=== PATIENT | male | born 1970 | race African-American/Black ===

== ENCOUNTER → 2017-01-18 | Emergency (ER) | payer BC ==
[~2017-01-18] MED LIST: KETOROLAC TROMETHAMINE 30 MG/1 ML VIAL IVPUSH ONE; KETOROLAC TROMETHAMINE 30 MG/1 ML VIAL ONE
[2017-01-18 01:17] VITALS: BP 153/90; PULSE 84; TEMP 98.3; BMI 36.6
[2017-01-18 02:33] LABS: BASOPHIL 0.9 % (0-2.0); EOSINOPHIL 8.2 % (0-4.5); MCH 27.1 pg (25.7-33.7); MCHC 33.3 g/dl (32.0-35.9); MEAN CELL VOLUME 81.5 fl (80-96); MEAN PLT VOLUME 8.3 fl (7.5-11.1); NEUTROPHILS 53.8 % (42.8-82.8); PLATELET COUNT 248 K/MM3 (134-434); RDW 15.7 % (11.9-15.9); WHITE BLOOD COUNT 5.6 K/mm3 (4.0-10.0)
[2017-01-18 02:34] LABS: URINE APPEARANCE CLEAR; URINE BILIRUBIN NEGATIVE (NEGATIVE); URINE BLOOD NEGATIVE (NEGATIVE); URINE COLOR LTYELLOW; URINE GLUCOSE (UA) NEGATIVE (NEGATIVE); URINE KETONE NEGATIVE (NEGATIVE); URINE LEUK ESTERASE NEGATIVE (NEGATIVE); URINE NITRITE NEGATIVE (NEGATIVE); URINE UROBILINOGEN NEGATIVE mg/dL (0.2-1.0)
[2017-01-18 02:52] LABS: URINE PROTEIN 1+ (NEGATIVE)
--- NOTE | 2017-01-18 03:06 | PDOC ---
History of Present Illness - General Chief Complaint: Pain Stated Complaint: PAIN Time Seen by Provider: 01/18/17 02:10 - History of Present Illness Initial Comments: 01/18/17 03:04 CHIEF COMPLAINT: back pain HISTORY OF PRESENT ILLNESS: 46 yo M with hx of HTN presents to [facility] with R sided back pain x 4 days. Patient states he woke up with the pain 4 days ago and the pain has not subsided. He states that the pain is worse with movement. 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 Patient denies numbness or tingling of the legs, loss of bowel or bladder function. No recent travel or sick contacts. PAST MEDICAL HISTORY: Denies past medical history FAMILY HISTORY: Denies SOCIAL HISTORY: Denies tobacco, alcohol, illicit drug use. SURGICAL HISTORY: Denies ALLERGIES: No known drug allergies REVIEW OF SYSTEMS General/Constitutional: Denies fever or chills. Denies weakness, weight change. HEENT: Denies change in vision. Denies ear pain or discharge. Denies sore throat. Cardiovascular: Denies chest pain or shortness of breath. Respiratory: Denies cough, wheezing, or hemoptysis. Gastrointestinal: Denies nausea, vomiting, diarrhea or constipation. Denies rectal bleeding. Genitourinary: Denies dysuria, frequency, or change in urination. Musculoskeletal: R lower back pain. PHYSICAL EXAM General Appearance: Well-appearing, appropriately dressed. No apparent distress. HEENT: EOMI, PERRLA. Respiratory/Chest: Lungs CTAB. Cardiovascular: RRR. S1, S2. Gastrointestinal/Abdominal: Normal bowel sounds. Abdomen soft, non-distended. No tenderness or rebound tenderness. No organomegaly, pulsatile mass, guarding , hernia, hepatomegaly, splenomegaly. Musculoskeletal/Extremities: R lower back pain. FROM of all extremities, normal capillary refill. No tenderness to extremities, pedal edema, swelling, erythema or deformity. Integumentary: Appropriate color, dry, warm. 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 Fully oriented, alert. Appropriate mood/affect. Motor strength 5/5. No appreciable EOM palsy, facial droop or sensory deficit. 01/18/17 03:07 Past History - Past Medical History Allergies/Adverse Reactions: Allergies Allergy/AdvReac Type Severity Reaction Status Date / Time No Known Drug Allergies Allergy Unknown Verified 01/18/17 01:13 seafood Allergy Uncoded 01/18/17 01:13 Home Medications: Ambulatory Orders Amlodipine Besylate/Benazepril [Lotrel 10-40 mg Capsule] 1 each PO DAILY #30 capsule 06/19/13 Aspirin [ASA -] 81 mg PO DAILY #30 tab.chew 06/19/13 Hydrochlorothiazide [Hctz -] 25 mg PO DAILY 10/29/15 Naproxen Sodium [Anaprox] 275 mg PO TID #30 tablet 10/29/15 Sulfamethoxazole/Trimethoprim [Bactrim Ds Tablet] 1 each PO BID #20 tablet 10/28 Clindamycin [Cleocin -] 300 mg PO TID #21 capsule 06/01/16 Oxycodone HCl/Acetaminophen [Percocet 5-325 mg Tablet] 1 - 2 tab PO Q6H PRN #12 tab MDD 4 06/01/16 Diazepam [Valium] 5 mg PO HS #5 tablet MDD 1 01/18/17 Naproxen [Naprosyn -] 500 mg PO BID #14 tablet 01/18/17 HTN: Yes - Psycho/Social/Smoking Cessation Hx Anxiety: No Suicidal Ideation: No Smoking History: Current every day smoker Have you smoked in the past 12 months: Yes Number of Cigarettes Smoked Daily: 20 Information on smoking cessation initiated: No 'Breaking Loose' booklet given: 06/18/13 Hx Alcohol Use: No Drug/Substance Use Hx: No Substance Use Type: None *Physical Exam - Vital Signs Last Vital Signs Temp Pulse Resp BP Pulse Ox 98.3 F 84 20 153/90 96 01/18/17 01:14 01/18/17 01:14 01/18/17 01:14 01/18/17 01:14 01/18/17 01:14 ED Treatment Course - LABORATORY CBC & Chemistry Diagram: 01/18/17 02:20 01/18/17 02:20 - ADDITIONAL ORDERS Additional order review: Laboratory Results 01/18/17 02:20 Urine Color Ltyellow Urine Appearance Clear Urine pH 6.0 Urine Protein 1+ H Urine Glucose (UA) Negative Urine Ketones Negative Urine Blood Negative Urine Nitrite Negative Urine Bilirubin Negative Urine Urobilinogen Negative Ur Leukocyte Esterase Negative 01/18/17 02:20 RBC 5.12 MCV 81.5 MCHC 33.3 RDW 15.7 MPV 8.3 Neutrophils % 53.8 Lymphocytes % 29.9 Monocytes % 7.2 Eosinophils % 8.2 H Basophils % 0.9 Medical Decision Making - Medical Decision Making 01/18/17 04:59 46 yo M with hx of HTN presents to [facility] with R sided back pain x 4 days. -CBC, CMP -30 mg IV Toradol Likely musculoskeletal pain secondary to strenuous physical activity. Patient reports feeling "much better" and is ready to go home. Valium, naproxen rx sent to pharm. Advised patient to take medication as prescribed and follow up with orthopedics if symptoms persist. Advised patient of signs and symptoms for return to ED. Patient verbalized understanding and agrees to plan. *DC/Admit/Observation/Transfer Diagnosis at time of Disposition: Back pain Qualifiers: Back pain location: low back pain Chronicity: acute Back pain laterality: right Sciatica presence: without sciatica Qualified Code(s): M54.5 - Low back pain - Discharge Dispostion Disposition: HOME Condition at time of disposition: Stable - Prescriptions Prescriptions: Naproxen [Naprosyn -] 500 mg PO BID #14 tablet Diazepam [Valium] 5 mg PO HS #5 tablet MDD 1 - Referrals Referrals: Dari Salinas [Primary Care Provider] - Dustin Bhatt MD [Staff Physician] - - Patient Instructions Printed Discharge Instructions: DI for Low Back Pain Additional Instructions: Please take medications as prescribed. Follow up with orthopedics if symptoms persist past 3-4 days. If you experience any shortness of breath, chest pain, headache, fever, chills, loss of sensation/numbness/tingling to your legs, loss of bowel or bladder function, or any new or worsening symptoms, please return to the ER.
[2017-01-18 03:11] LABS: ALBUMIN 3.4 g/dl (3.4-5.0); ALK PHOS 56 U/L (45-117); ANION GAP 7 (8-16); BILIRUBIN,TOTAL 0.4 mg/dL (0.2-1.0); CALCIUM 8.8 mg/dL (8.5-10.1); CO2 34 mmol/L (21-32); CREATININE 1.4 mg/dL (0.7-1.3); GLUCOSE,RANDOM 151 mg/dL (74-106); SGPT/ALT 37 U/L (12-78)
[2017-01-18 03:13] LABS: SGOT/AST 33 U/L (15-37)
[2017-01-18 03:18] LABS: URINE MUCUS RARE; URINE RBC <1 /hpf (0-3)
== END | disposition home or self-care (01) ==
LOC: JER 00:59
PROC: 3E0333Z Introduction of Anti-inflammatory into Peripheral Vein, Percutaneous Approach (ICD-10-PCS; principal; 2017-01-18)
DX: M54.5 Low back pain (principal); I10 Essential (primary) hypertension; Z79.82 Long term (current) use of aspirin; F17.210 Nicotine dependence, cigarettes, uncomplicated
CPT/HCPCS: 36415; 80053; 81003; 81015; 85025; 87086; 99283-25

== ENCOUNTER 2018-02-06 13:01 | Inpatient (IN) | payer OTHER ==
--- NOTE | 2018-02-06 13:26 | PDOC ---
History of Present Illness - General Chief Complaint: SIRS, Suspected/Possible Stated Complaint: LOWER BACK PAIN Time Seen by Provider: 02/06/18 13:25 Past History - Past Medical History Allergies/Adverse Reactions: Allergies Allergy/AdvReac Type Severity Reaction Status Date / Time No Known Drug Allergies Allergy Unknown Verified 02/06/18 13:06 seafood Allergy Uncoded 02/06/18 13:06 Home Medications: Ambulatory Orders Amlodipine Besylate/Benazepril [Lotrel 10-40 mg Capsule] 1 each PO DAILY #30 capsule 06/19/13 Aspirin [ASA -] 81 mg PO DAILY #30 tab.chew 06/19/13 Hydrochlorothiazide [Hctz -] 25 mg PO DAILY 10/29/15 Naproxen Sodium [Anaprox] 275 mg PO TID #30 tablet 10/29/15 Sulfamethoxazole/Trimethoprim [Bactrim Ds Tablet] 1 each PO BID #20 tablet 10/28 Clindamycin [Cleocin -] 300 mg PO TID #21 capsule 06/01/16 Oxycodone HCl/Acetaminophen [Percocet 5-325 mg Tablet] 1 - 2 tab PO Q6H PRN #12 tab MDD 4 06/01/16 Diazepam [Valium] 5 mg PO HS #5 tablet MDD 1 01/18/17 Naproxen [Naprosyn -] 500 mg PO BID #14 tablet 01/18/17 Acetaminophen [Tylenol -] 1,000 mg PO Q6H PRN #30 tablet 02/05/18 levoFLOXacin [Levaquin -] 500 mg PO DAILY #7 tablet 02/05/18 COPD: No HTN: Yes - Immunization History Immunization Up to Date: Yes - Suicide/Smoking/Psychosocial Hx Smoking History: Current some day smoker Have you smoked in the past 12 months: Yes Number of Cigarettes Smoked Daily: 20 Information on smoking cessation initiated: No 'Breaking Loose' booklet given: 06/18/13 Hx Alcohol Use: No Drug/Substance Use Hx: No Substance Use Type: None *Physical Exam - Vital Signs Last Vital Signs Temp Pulse Resp BP Pulse Ox 101.9 F H 91 H 20 163/86 97 02/06/18 13:06 02/06/18 13:06 02/06/18 13:06 02/06/18 13:06 02/06/18 13:06
[2018-02-06] MEDS ORDERED: SODIUM CHLORIDE 0.9% 1000 ML INFUS.BAG IV ONE ×2 (13:34→16:32)
[2018-02-06] MEDS ORDERED: ACETAMINOPHEN 1000 MG/100 ML VIAL (NON FORMULARY) IVPB ONE (13:34)
[2018-02-06] MEDS ORDERED: DEXAMETHASONE SOD PHOSPHATE 10 MG/1 ML VIAL IVPUSH ONE (13:35)
--- NOTE | 2018-02-06 13:50 | PDOC ---
History of Present Illness - General Chief Complaint: SIRS, Suspected/Possible Stated Complaint: LOWER BACK PAIN Time Seen by Provider: 02/06/18 13:25 History Source: Patient Exam Limitations: No Limitations - History of Present Illness Initial Comments: 02/06/18 13:50 The patient is a 47M with no PMH who presents to the ER with 1.5 days of sore throat, fevers, and myalgias. The patient states that he had an abrupt onset of sore throat, fevers, myalgias, and mild cough for 1.5 days. He denies any sick contacts. He admits to mild CP but no SOB, nausea, or vomiting. Past History - Past Medical History Allergies/Adverse Reactions: Allergies Allergy/AdvReac Type Severity Reaction Status Date / Time No Known Drug Allergies Allergy Unknown Verified 02/06/18 13:06 seafood Allergy Uncoded 02/06/18 13:06 Home Medications: Ambulatory Orders Hydrochlorothiazide [Hctz -] 50 mg PO DAILY 02/06/18 Losartan Potassium 100 mg PO DAILY 02/06/18 COPD: No HTN: Yes - Immunization History Immunization Up to Date: Yes - Suicide/Smoking/Psychosocial Hx Smoking History: Current every day smoker Have you smoked in the past 12 months: Yes Number of Cigarettes Smoked Daily: 20 Information on smoking cessation initiated: No 'Breaking Loose' booklet given: 06/18/13 Hx Alcohol Use: No Drug/Substance Use Hx: No Substance Use Type: None Review of Systems - Review of Systems Able to Perform ROS?: Yes Comments:: 02/06/18 13:58 GENERAL/CONSTITUTIONAL: Positive for fever. No chills. No weakness. HEAD, EYES, EARS, NOSE AND THROAT: Positive for sore throat. No change in vision. No ear pain or discharge. CARDIOVASCULAR: Positive for resolved CP. No palpitations or lightheadedness. RESPIRATORY: No cough, wheezing, shortness of breath, or hemoptysis. GASTROINTESTINAL: No nausea, vomiting, diarrhea, constipation, or abdominal pain. GENITOURINARY: No dysuria, frequency, hematuria, or change in urination. MUSCULOSKELETAL: Positive for myalgias. No neck or back pain. SKIN: No rash or lesions. NEUROLOGIC: No headache, numbness, tingling, weakness, loss of consciousness, or change in strength/sensation. ENDOCRINE: No increased thirst. No abnormal weight change. HEMATOLOGIC/LYMPHATIC: No anemia, easy bleeding, or history of blood clots. ALLERGIC/IMMUNOLOGIC: No hives or skin allergy. Is the patient limited Kenyan proficient: No *Physical Exam - Vital Signs Last Vital Signs Temp Pulse Resp BP Pulse Ox 101.9 F H 91 H 20 163/86 97 02/06/18 13:06 02/06/18 13:06 02/06/18 13:06 02/06/18 13:06 02/06/18 13:06 - Physical Exam Comments: 02/06/18 13:59 GENERAL: Well developed, well nourished. Awake and alert. In mild distress. Warm to touch. HEENT: Normocephalic, atraumatic. Hearing grossly normal. Moist mucous membranes. PERRLA, EOMI. No conjunctival pallor. Sclera are non-icteric. Oropharynx is erythematous w/ enlarged tonsils. NECK: Supple. Full ROM. No JVD. Mild lymphadenopathy. CARDIOVASCULAR: Regular rate and rhythm. No murmurs, rubs, or gallops. PULMONARY: No evidence of respiratory distress. L lower lobe rhonchi. ABDOMINAL: Soft. Non-tender. Non-distended. No rebound or guarding. GENITOURINARY: No CVA tenderness bilaterally. MUSCULOSKELETAL: Normal range of motion at all joints. No bony deformities or tenderness. EXTREMITIES: No cyanosis. No clubbing. No edema. No calf tenderness or swelling. SKIN: Warm and dry. Normal capillary refill. No rashes. No jaundice. NEUROLOGICAL: Alert, awake, appropriate. Cranial nerves 2-12 intact. Normal speech. Gait is normal without ataxia. PSYCHIATRIC: Cooperative. Good eye contact. Appropriate mood and affect. ED Treatment Course - LABORATORY CBC & Chemistry Diagram: 02/06/18 14:37 02/06/18 14:37 - RADIOLOGY Radiology Studies Ordered: Category Date Time Status CHEST PA & LAT [RAD] Stat Radiology 02/06/18 13:34 Ordered Medical Decision Making - Medical Decision Making 02/06/18 14:01 The patient is a 47M with no PMH who presents to the ER with complaints of fever , myalgias, and sore throat. Exam reveals rhonchi in L lower lobe. Will order labs and CXR with EKG. Concern for CAP. Pending labs and imaging. 02/06/18 17:15 CXR shows possible retrocardiac infiltrate. CMP indicates electrolyte abnormalities, especially trop of 0.1 and K of 2.6. Replenishing K and giving asa with cardiology consult. Attending d/w cards. Paging hospitalist for admission. *DC/Admit/Observation/Transfer Diagnosis at time of Disposition: Sepsis, Pneumonia, Elevated troponin, Hypokalemia - Discharge Dispostion Condition at time of disposition: Guarded - Referrals - Patient Instructions - Post Discharge Activity
[2018-02-06] MEDS ORDERED: DEXAMETHASONE SOD PHOSPHATE 10 MG/1 ML VIAL ONE (14:28)
--- NOTE | 2018-02-06 14:28 | PDOC ---
Attending Attestation - HPI HPI: 02/06/18 16:16 The patient is a 47 year old male with a significant PMH of hypertension who presents to the emergency department with a sore throat and fever for about 2 days. The patient also reports associated myalgia, chest pain and mild cough. He denies any travel or known sick contact. The patient denies any shortness of breath , nausea, or vomiting. 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 He denies any other symptoms or complaints. - Physicial Exam PE: 02/06/18 16:16 GENERAL: (+)hot to touch. Awake, alert, and fully oriented, in no acute distress HEAD: No signs of trauma EYES: PERRLA, EOMI, sclera anicteric, conjunctiva clear ENT: Auricles normal inspection, hearing grossly normal, nares patent, oropharynx clear without exudates. Moist mucosa NECK: Normal ROM, supple, no lymphadenopathy, JVD, or masses LUNGS: Breath sounds equal, clear to auscultation bilaterally. No wheezes, and no crackles HEART:(+)tachycardic. Regular rate. normal S1 and S2, no murmurs, rubs or gallops ABDOMEN: Soft, nontender, normoactive bowel sounds. No guarding, no rebound. No masses EXTREMITIES: )trace edema in legs. Normal range of motion. No clubbing or cyanosis. No cords, erythema, or tenderness NEUROLOGICAL: Cranial nerves II through XII grossly intact. Normal speech, normal gait SKIN: Warm, Dry, normal turgor, no rashes or lesions noted. Documentation prepared by Cristy English, acting as medical technician assistant for Ambika Valero MD. <Cristy English - Last Filed: 02/06/18 16:16> - Resident Resident Name: Jim Enamorado - ED Attending Attestation I have performed the following: I have examined & evaluated the patient, The case was reviewed & discussed with the resident, I agree w/resident's findings & plan, Exceptions are as noted - Critical Care Time Total Critical Care Time: 35 Critical Care Statement: The care of this patient involved high complexity decision making to prevent further life threatening deterioration of the patient 's condition and/or to evaluate & treat vital organ system(s) failure or risk of failure. - Medical Decision Making 02/06/18 14:26 I, Dr. Ambika Valero, DO, attest that this document has been prepared under my direction and personally reviewed by me in its entirety. I further attest, that it accurately reflects all work, treatment, procedures and medical decision -making performed by me. 02/06/18 14:26 a/p: 47yo male with fever, chills, sore throat, cough, sob x 2 days -no recent travel or sick contacts -no recent abx -seen yesterday and started on levaquin for pharyngitis -feeling worse today - took levaquin this AM -rhonchi on lung exam -will send labs, ekg, cxr -will hydrate, tylenol for fever and reassess 02/06/18 16:38 pt with low potassium pna on cxr elevated trop ekg changes with lateral subendocardial ischemia case discussed with Dr. Ho covering cards will see patient in consult today agrees with asa therapy 02/06/18 17:[address] Mary who accept pt to service <Ambika Valero - Last Filed: 02/06/18 17:33> Discharge Disposition <Cristy English - Last Filed: 02/06/18 16:16> - Discharge Dispostion Last Admission D/C Date: 06/19/13 Decision to Admit order: Yes <Ambika Vaelro - Last Filed: 02/06/18 17:33> - Diagnosis Sepsis, Pneumonia, Elevated troponin, Hypokalemia - Discharge Dispostion Condition at time of disposition: Guarded Heart Score/ECG Review - ECG Intrepretation Comment:: 02/06/18 14:43 sinus at 83, nl axis, lvh, st depression with t wave inversions lateral leads, abnl ekg, q waves septally that are age indeterminate <Ambika Valero - Last Filed: 02/06/18 17:33>
[2018-02-06] MEDS ORDERED: ACETAMINOPHEN INJECTION 100 ML IVPB ONE (14:29)
[2018-02-06 14:46] LABS: BASO % 0.3 % (0-2.0); EOS % 0.1 % (0-4.5); HEMATOCRIT 40.4 % (35.4-49); HEMOGLOBIN 13.7 GM/dL (11.7-16.9); LYMPH % 12.8 % (8-40); MCH 27.4 pg (25.7-33.7); MCHC 33.8 g/dl (32.0-35.9); MEAN PLT VOLUME 8.6 fl (7.5-11.1); MONO % 8.8 % (3.8-10.2); PLATELET COUNT 166 K/MM3 (134-434); RBC 4.98 M/mm3 (4.00-5.60); RDW 15.4 % (11.9-15.9); WHITE BLOOD COUNT 7.3 K/mm3 (4.0-10.0)
[2018-02-06 15:09] LABS: ALBUMIN 3.1 g/dl (3.4-5.0); ANION GAP 9 MMOL/L (8-16); BLOOD UREA NITROGEN 18 mg/dL (7-18); CALCIUM 8.2 mg/dL (8.5-10.1); CHLORIDE 91 mmol/L (98-107); CO2 36 mmol/L (21-32); CREATININE 1.4 mg/dL (0.7-1.3); GLUCOSE,RANDOM 107 mg/dL (74-106); SGOT/AST 42 U/L (15-37); SGPT/ALT 46 U/L (12-78); SODIUM 136 mmol/L (136-145)
[2018-02-06 15:13] LABS: ALK PHOS 56 U/L (45-117); BILIRUBIN,TOTAL 1.2 mg/dL (0.2-1.0); N-TERMINAL BNP 303.27 pg/ml (5-125); TOT PROT 6.6 g/dl (6.4-8.2)
[2018-02-06 15:15] LABS: POTASSIUM 2.6 mmol/L (3.5-5.1)
[2018-02-06] MEDS ORDERED: POTASSIUM CHLORIDE TABS 20 MEQ TABLET.ER (FP) PO ONE ×2 (15:15→17:35)
[2018-02-06] MEDS ORDERED: ASPIRIN 81 MG CHEWABLE TABLETS PO ONE (16:32)
--- NOTE | 2018-02-06 17:07 | CON.CARD ---
Consult Consult Specialty:: Cardiology Referred by:: Marylu Reason for Consultation:: chest pain, abnormal EKG, elevated trop - History of Present Illness Chief Complaint: fever History of Present Illness: 47M h/o HTN p/w sore throat, fever, chest pain, myalgia, cough. Noted to have PNA on CXR. Noted to have K 2.6, trop 0.12, EKG shows ST depressions, febrile in ED. Currently has chest pain with coughing. Has a history of uncontrolled BP, on HCTZ and ARB at home but BP checks at home 160s-190s systolic, 90s-110s diastolic from what he remembers. Has occasional edema. No exertional symptoms prior to recent illness. Has not been to a doctor in several months. - History Source History Provided By: Patient Limitations to Obtaining History: No Limitations - Past Medical History Cardio/Vascular: Yes: HTN - Alcohol/Substance Use Hx Alcohol Use: No - Smoking History Smoking history: Current every day smoker Have you smoked in the past 12 months: Yes Aproximately how many cigarettes per day: 20 Home Medications - Allergies Allergies/Adverse Reactions: Allergies Allergy/AdvReac Type Severity Reaction Status Date / Time No Known Drug Allergies Allergy Unknown Verified 02/06/18 13:06 seafood Allergy Uncoded 02/06/18 13:06 - Home Medications Home Medications: Ambulatory Orders Hydrochlorothiazide [Hctz -] 50 mg PO DAILY 02/06/18 Losartan Potassium 100 mg PO DAILY 02/06/18 Review of Systems - Review of Systems Constitutional: reports: Chills, Fever Eyes: reports: No Symptoms HENT: reports: No Symptoms Neck: reports: No Symptoms Cardiovascular: reports: Chest Pain Respiratory: reports: Cough Gastrointestinal: reports: No Symptoms Musculoskeletal: reports: No Symptoms Integumentary: reports: No Symptoms Neurological: reports: No Symptoms Endocrine: reports: No Symptoms Hematology/Lymphatic: reports: No Symptoms Psychiatric: reports: No Symptoms Vital Signs: Vital Signs Temperature 101.9 F H 02/06/18 13:06 Pulse Rate 91 H 02/06/18 13:06 Respiratory Rate 20 02/06/18 13:06 Blood Pressure 163/86 02/06/18 13:06 O2 Sat by Pulse Oximetry (%) 97 02/06/18 13:06 Constitutional: Yes: No Distress, Calm Eyes: Yes: Conjunctiva Clear, EOM Intact HENT: Yes: Atraumatic, Normocephalic Neck: Yes: Supple Respiratory: Yes: Regular, CTA Bilaterally Gastrointestinal: Yes: Normal Bowel Sounds, Soft Cardiovascular: Yes: Regular Rate and Rhythm JVD: No Heart Sounds: Yes: S1, S2 Edema: No Peripheral Pulses: 2+ Left Doralis Pedis, 2+ Right Dorsalis Pedis Integumentary: Yes: WNL Neurological: Yes: Alert, Oriented Psychiatric: Yes: Alert, Oriented - Other Data Labs, Other Data: CBC, BMP 02/06/18 14:37 02/06/18 14:37 Troponin, BNP 02/06/18 02/06/18 14:37 14:37 Troponin I 0.12 H D B-Natriuretic Peptide 303.27 H Troponin, BNP 02/06/18 02/06/18 14:37 14:37 Troponin I 0.12 H D B-Natriuretic Peptide 303.27 H Assessment/Plan EKG: sinus rhythm, LAE, LVH with strain pattern. EKG from 2008 shows LVH with strain as well CXR retrocardiac infiltrate 47M h/o HTN p/w cough, pharyngitis, PNA with abnormal EKG, elevated trop Elevated trop - likely demand in setting of infection, uncontrolled HTN - initial trop 0.12, trend trop, agree with aspirin, monitor on tele - EKG shows ST depressions in setting of strain, patient has chest pain but less likely ACS related, worse with cough, deep breaths, defer treatment for ACS at this point Abnl EKG - likely in setting of uncontrolled HTN, shows LVH with strain - echo ordered HTN - cont home meds, may need additional agent if remains poorly controlled. PNA - abx per primary team
[2018-02-06] MEDS ORDERED: ASPIRIN 81 MG CHEWABLE TABLETS ONE (17:35)
--- NOTE | 2018-02-06 17:59 | HP ---
CHIEF COMPLAINT: Sore throat, weakness, fever PCP: Dr. Rosa Arauz HISTORY OF PRESENT ILLNESS: Patient is a 47 year old male with a PMHx of HTN, pre-diabetes who presents today complaining of Sore throat, subjective fevers, chills, malaise, fatigue, dry cough for the last two days. Patient initially presented to the ED yesterday for these symptoms and was given Levaquin and discharged home. Patient however, reports his symptoms were worsening and he started having worsening fevers with worsening malaise and cough. Patient reports no productive sputum with cough. Denies sick contacts or anyone sick in the house. Denies any recent travel. Patient also reports having one episode of sharp, non radiating, intermittent chest pain that lasted only 5 minutes associated with palpitations. He reports never having these symptoms in the past and denies any shortness of breath. Otherwise, patient denies blurry vision, loss of consciousness, abdominal pain, dizziness, vomiting, diarrhea, constipation, rhinorrhea, nasal congestion, throat swelling, difficulty swallowing. Patient reports having an exercise stress test done one year ago and was negative. ER course was notable for: (1) Chest X-ray showing PNA, EKG abnormalities (2)Troponins elevated (3)Hypokalemia Recent Travel: Denies PAST MEDICAL HISTORY: HTN, Pre-diabetes PAST SURGICAL HISTORY: Denies Social History: Smokin PPD since the age of 13 Alcohol: Occasional Drugs: Denies Family History: Mother and father - HTN Allergies: No Known Drug Allergies Allergy (Unknown, Verified 02/06/18 13:06) seafood Allergy (Uncoded 02/06/18 13:06) HOME MEDICATIONS: Home Medications Medication Instructions Recorded Hydrochlorothiazide [Hctz -] 50 mg PO DAILY 02/06/18 Losartan Potassium 100 mg PO DAILY 02/06/18 REVIEW OF SYSTEMS CONSTITUTIONAL: fever, chills, diaphoresis, generalized weakness, malaise Absent: loss of appetite, weight change HEENT: throat pain Absent: rhinorrhea, nasal congestion, throat swelling, difficulty swallowing, mouth swelling, ear pain, eye pain, visual changes CARDIOVASCULAR: chest pain, palpitations Absent: syncope, irregular heart rate, lightheadedness, peripheral edema RESPIRATORY: cough Absent: shortness of breath, dyspnea with exertion, orthopnea, wheezing, stridor , hemoptysis GASTROINTESTINAL: Absent: abdominal pain, abdominal distension, nausea, vomiting, diarrhea, constipation, melena, hematochezia GENITOURINARY: Absent: dysuria, frequency, urgency, hesitancy, hematuria, flank pain, genital pain MUSCULOSKELETAL: Absent: myalgia, arthralgia, joint swelling, back pain, neck pain SKIN: Absent: rash, itching, pallor HEMATOLOGIC/IMMUNOLOGIC: Absent: easy bleeding, easy bruising, lymphadenopathy, frequent infections ENDOCRINE: Absent: unexplained weight gain, unexplained weight loss, heat intolerance, cold intolerance NEUROLOGIC: Absent: headache, focal weakness or paresthesias, dizziness, unsteady gait, seizure, mental status changes, bladder or bowel incontinence PSYCHIATRIC: Absent: anxiety, depression, suicidal or homicidal ideation, hallucinations. PHYSICAL EXAMINATION Vital Signs - 24 hr 02/06/18 13:06 Temperature 101.9 F H Pulse Rate 91 H Respiratory 20 Rate Blood Pressure 163/86 O2 Sat by Pulse 97 Oximetry (%) GENERAL: Awake, alert, and fully oriented, in no acute distress, diaphoretic HEAD: Normal with no signs of trauma. EYES: Pupils equal, round and reactive to light, extraocular movements intact, sclera anicteric, conjunctiva clear. No lid lag. EARS, NOSE, THROAT: (+) Pharyngeal erythema with no exudates, Moist mucous membranes. NECK: Normal range of motion, supple without lymphadenopathy, JVD, or masses. LUNGS: Bilateral rales. No wheezes. No accessory muscle use. HEART: Tachycardia with regular rhythm, normal S1 and S2 without murmur, rub or gallop. ABDOMEN: Soft, Obese, nontender, not distended, normoactive bowel sounds, no guarding, no rebound, no masses. MUSCULOSKELETAL: Normal range of motion at all joints. No bony deformities or tenderness. No CVA tenderness. LOWER EXTREMITIES: Trace pitting edema NEUROLOGICAL: Cranial nerves II-XII intact. Normal speech. PSYCHIATRIC: Cooperative. Good eye contact. Appropriate mood and affect. SKIN: Warm, dry, normal turgor, no rashes or lesions noted, normal capillary refill. Laboratory Results - last 24 hr 02/06/18 02/06/18 02/06/18 14:37 14:37 14:37 WBC 7.3 RBC 4.98 Hgb 13.7 Hct 40.4 MCV 81.0 MCH 27.4 MCHC 33.8 RDW 15.4 Plt Count 166 D MPV 8.6 Absolute Neuts (auto) 5.7 Neutrophils % 78.0 D Lymphocytes % 12.8 D Monocytes % 8.8 Eosinophils % 0.1 D Basophils % 0.3 Nucleated RBC % 0 Sodium 136 Potassium 2.6 L* D Chloride 91 L Carbon Dioxide 36 H Anion Gap 9 BUN 18 Creatinine 1.4 H Creat Clearance w eGFR 54.32 Random Glucose 107 H D Calcium 8.2 L Total Bilirubin 1.2 H AST 42 H D ALT 46 D Alkaline Phosphatase 56 Creatine Kinase 762 H Creatine Kinase Index 0.2 CK-MB (CK-2) 2.15 Troponin I 0.12 H D B-Natriuretic Peptide 303.27 H Total Protein 6.6 Albumin 3.1 L ASSESSMENT/PLAN: Patient is a 47 year old male who presented for a dry cough, sore throat, fevers , malaise and was found to have pneumonia and elevated troponins, Patient admitted for further monitoring and management. Sepsis Secondary Pneumonia w/ Possible Superimposed Viral/Bacterial Pharyngitis -Febrile with tachycardia with CXR conforming PNA -Continue IV Levaquin 750mg daily -Continue IV fluids -02 PRN to maintain >90% -Blood cultures pending Elevated Troponins -Likely demand ischemia -First Troponin 0.12, will continue to trend Q6H with repeat at 20:30 -EKG abnormalities showing -Full dose ASA given and cardiology consult placed.. Will continue ASA 81mg daily -ECHO ordered -Tele monitoring -Lipid panel and A1C ordered Hypokalemia -Possibly medication induced -KCl 60mg given in ED. KCL 10meq x3 ordered with PO -Check Mg and repeat potassium JASON on Possible CKD -Likely secondary to Sepsis or medication induced -Continue IVF -Avoid Nephrotoxic medications HTN -Uncontrolled -Will hold home medications Losartan and HCTZ as it might worsen JASON. Unable to take Amlodipine due to B/L LE edema. -Will consider Hydralazine Nicotine Dependence -Nicotine patch F/E/N -IV NS 2L -Hypokalemia. Replete and repeat Prophylaxis -heparin 5000 units SQ TID -No GI required Disposition -Will require tele monitoring and ECHO pending Visit type - Emergency Visit Emergency Visit: Yes ED Registration Date: 02/06/18 Care time: The patient presented to the Emergency Department on the above date and was hospitalized for further evaluation of their emergent condition. - New Patient This patient is new to me today: Yes Date on this admission: 02/06/18 - Critical Care Critical Care patient: No Hospitalist Screening - Colonoscopy Questionnaire Colonoscopy Questionnaire: Colonoscopy Questionnaire - Patient: 50 - 75 years old and never had a screening colonoscopy: No History of colon or rectal polyps, or CA: No History of IBD, Crohn's disease or UC: No History of abdominal radiation therapy as a child: No - Relative: 1 with colon or rectal CA, or polyps at age 60 or younger: No Colon or rectal CA diagnosed at age 45 or younger: No Multiple relatives with colon or rectal CA: No - Outcome: Screening Result: Negative Screen
[2018-02-06] MEDS ORDERED: ACETAMINOPHEN 325 MG TABLET (FP) PO PRN (18:11)
--- NOTE | 2018-02-06 18:16 | PN ---
Teaching Attending Note Name of Resident: Marce Keys ATTENDING PHYSICIAN STATEMENT I saw and evaluated the patient. I reviewed the resident's note and discussed the case with the resident. I agree with the resident's findings and plan as documented. SUBJECTIVE:47yo M with PMH HTN presented to the ER for progressively worsening malaise and fatigue with non productive cough. assoc iwth subjective fevers and chills. was seen in the ER yesterday where rapid strep was done and negative and was sent out with levaquin x5 days. pt took it yesterday and today and was not feeling better and came to the ER. states he had some chest discomfort last night which has since disappeared. denies SOB, N/V/C/D/, no sick contacts no recent travel. no recent changes to medications had exercise stress test a year ago for routine and was negative per him. has not followed with retina subspecialist since then no family hx of CAD, no sudden cardiac +smoker OBJECTIVE: Last Vital Signs Temp Pulse Resp BP Pulse Ox 101.9 F H 91 H 20 163/86 97 02/06/18 13:06 02/06/18 13:06 02/06/18 13:06 02/06/18 13:06 02/06/18 13:06 General diaphoretic HEENT erythematous pharynx no exudate. mallenpati 4, no cervical LN CV S1 S2 tachy no murmur Lungs rales L base no wheezing Abdomen soft NT/ND obese Extremities trace pedal edema ASSESSMENT AND PLAN: 47yo M with PMH HTN presented with worsening malaise and constitutional symptoms presented to the ER and found to be septic due to PNA with elevated troponin 1. Sepsis due to PNA- Tm 101.9. tachycardia. will start levaquin IV, IVF. supplemental oxygen as needed to mantain spO2 >90%. f/u Cx 2. Elevated troponin- likely demand in setting of sepsis. given full dose asa. would continue baby asa at this time. Trop 0.12. place on tele for continuous cardiac monitoring. trend CE Q6H with EKG. echo. cardio consulted. 3. Hypokaelmia- medication effect. will give KCl 10meq x3 and po. check Mg. repeat 4. JASON- likely sepsis. unknown baseline. will treat with IVF. avoid nephrotoxic agents. 5. HTN- elevated. hold oral agents at this time. 6. Continous nicotine dependence- nicotine patch 7. DVT ppx- hep sq
[2018-02-06 18:28] LABS: URINE APPEARANCE CLEAR; URINE BILIRUBIN NEGATIVE (<2.0 mg/dL); URINE COLOR LTYELLOW; URINE GLUCOSE (UA) NEGATIVE (NEGATIVE); URINE KETONE NEGATIVE (NEGATIVE); URINE LEUK ESTERASE NEGATIVE (NEGATIVE); URINE NITRITE NEGATIVE (NEGATIVE)
[2018-02-06 18:29] LABS: URINE PROTEIN 1+ (NEGATIVE)
[2018-02-06] MEDS: KCL 10 MEQ IVPB 10 MEQ/100 ML INFUS.BAG IVPB SCH ×3 (20:00→22:00)
[2018-02-06] MEDS ORDERED: KCL 10 MEQ IVPB 30 MEQ/300 ML INFUS.BAG IVPB ONE (20:38)
[2018-02-06] MEDS: hydrALAZINE HCL 25 MG TABLET (FP) PO SCH (23:00)
[2018-02-06] MEDS ORDERED: hydrALAZINE HCL 25 MG TABLET (FP) ONE (23:27)
[2018-02-07 05:53] VITALS: TEMP 98.7; BMI 41.7
[2018-02-07] MEDS ORDERED: HEPARIN NA (PORCINE) 5,000 UNITS/ML 1ML VIAL SQ SCH (06:00)
[2018-02-07 08:48] LABS: CHLORIDE 97 mmol/L (98-107); POTASSIUM 3.5 mmol/L (3.5-5.1); SODIUM 138 mmol/L (136-145)
[2018-02-07 09:18] LABS: ANION GAP 9 MMOL/L (8-16); BLOOD UREA NITROGEN 21 mg/dL (7-18); CALCIUM 8.2 mg/dL (8.5-10.1); CHOLESTEROL 171 mg/dL (50-200); CO2 32 mmol/L (21-32); CREATININE 1.3 mg/dL (0.7-1.3); GLUCOSE,RANDOM 181 mg/dL (74-106); HDL CHOLESTEROL 37 mg/dL (40-60); MAGNESIUM 2.5 mg/dL (1.8-2.4); PHOSPHOROUS 2.1 mg/dL (2.5-4.9); TRIGLYCERIDES 98 mg/dL (35-160)
[2018-02-07] MEDS ORDERED: LOSARTAN POTASSIUM 50 MG TABLET (FP) PO SCH (10:00)
[2018-02-07] MEDS ORDERED: ASPIRIN 81 MG CHEWABLE TABLETS PO SCH (10:00)
[2018-02-07] MEDS ORDERED: HYDROCHLOROTHIAZIDE 25 MG TABLET (FP) PO SCH (10:00)
[2018-02-07] MEDS: hydrALAZINE HCL 25 MG TABLET (FP) PO SCH (10:01)
[2018-02-07 10:34] VITALS: BP 152/65; PULSE 74
--- NOTE | 2018-02-07 11:05 | PN ---
Progress Note (short form) - Note Progress Note: cc: fever s: no cp, palps, dizzy, lightheaded, sob o Current Medications Acetaminophen (Tylenol -) 650 mg PO Q6H PRN PRN Reason: PAIN LEVEL 1 - 3 Aspirin (Asa -) 81 mg PO DAILY [facility] Last Admin: 02/07/18 10:01 Dose: 81 mg Heparin Sodium (Porcine) (Heparin -) 5,000 unit SQ TID [facility] Last Admin: 02/07/18 06:43 Dose: 5,000 unit Hydralazine HCl (Apresoline -) 25 mg PO BID [facility] Last Admin: 02/07/18 10:01 Dose: 25 mg Levofloxacin (Levaquin 750 Mg Premixed Ivpb -) 750 mg in 150 mls @ 150 mls/hr IVPB DAILY [facility]; Protocol Last Admin: 02/07/18 10:01 Dose: Not Given Vital Signs Period Temp Pulse Resp BP Sys/Romano Pulse Ox Last 24 Hr 98.7 F-101.9 F 74-91 17-20 149-163/65-108 89-98 Constitutional: Yes: No Distress, Calm Eyes: Yes: Conjunctiva Clear, EOM Intact HENT: Yes: Atraumatic, Normocephalic Neck: Yes: Supple Respiratory: Yes: Regular, CTA Bilaterally Gastrointestinal: Yes: Normal Bowel Sounds, Soft Cardiovascular: Yes: Regular Rate and Rhythm JVD: No Heart Sounds: Yes: S1, S2 Edema: No Peripheral Pulses: 2+ Left Doralis Pedis, 2+ Right Dorsalis Pedis Integumentary: Yes: WNL Neurological: Yes: Alert, Oriented Psychiatric: Yes: Alert, Oriented - Other Data Assessment/Plan EKG: sinus rhythm, LAE, LVH with strain pattern. EKG from 2008 shows LVH with strain as well CXR retrocardiac infiltrate 47M h/o HTN p/w cough, pharyngitis, PNA with abnormal EKG, elevated trop Elevated trop - likely demand in setting of infection, uncontrolled HTN - trop 0.12, flat trend likely in setting of demand, unlikely ACS - EKG shows ST depressions in setting of LVH strain, patient has chest pain but less likely ACS related, worse with cough, deep breaths, defer treatment for ACS at this point - treat HTN as below Abnl EKG - likely in setting of uncontrolled HTN, shows LVH with strain - echo ordered HTN - holding home ARB and HCTZ per primary team, Cr has improved, BP improving on hydralazine however not first line agent - would consider restarting ARB and thiazide as JASON improves, continue hydralazine for now PNA - abx per primary team
--- NOTE | 2018-02-07 11:11 | DS ---
Physical Exam: SUBJECTIVE: did not evaluate the patient today. signed out AMA prior to my arrival. OBJECTIVE: Vital Signs Period Temp Pulse Resp BP Sys/Romano Pulse Ox Last 24 Hr 98.7 F-101.9 F 74-91 17-20 149-163/65-108 89-98 LABS Laboratory Results - last 24 hr 02/06/18 02/06/18 02/06/18 14:37 14:37 14:37 WBC 7.3 RBC 4.98 Hgb 13.7 Hct 40.4 MCV 81.0 MCH 27.4 MCHC 33.8 RDW 15.4 Plt Count 166 D MPV 8.6 Absolute Neuts (auto) 5.7 Neutrophils % 78.0 D Lymphocytes % 12.8 D Monocytes % 8.8 Eosinophils % 0.1 D Basophils % 0.3 Nucleated RBC % 0 Sodium 136 Potassium 2.6 L* D Chloride 91 L Carbon Dioxide 36 H Anion Gap 9 BUN 18 Creatinine 1.4 H Creat Clearance w eGFR 54.32 Random Glucose 107 H D Hemoglobin A1c % Calcium 8.2 L Phosphorus Magnesium Total Bilirubin 1.2 H AST 42 H D ALT 46 D Alkaline Phosphatase 56 Creatine Kinase 762 H Creatine Kinase Index 0.2 CK-MB (CK-2) 2.15 Troponin I 0.12 H D B-Natriuretic Peptide 303.27 H Total Protein 6.6 Albumin 3.1 L Triglycerides Cholesterol Total LDL Cholesterol HDL Cholesterol Urine Color Urine Appearance Urine pH Ur Specific [place] Urine Protein Urine Glucose (UA) Urine Ketones Urine Blood Urine Nitrite Urine Bilirubin Urine Urobilinogen Ur Leukocyte Esterase Urine WBC (Auto) Urine RBC (Auto) 02/06/18 02/06/18 02/07/18 17:40 21:03 06:00 WBC RBC Hgb Hct MCV MCH MCHC RDW Plt Count MPV Absolute Neuts (auto) Neutrophils % Lymphocytes % Monocytes % Eosinophils % Basophils % Nucleated RBC % Sodium 138 Potassium 3.5 D Chloride 97 L Carbon Dioxide 32 Anion Gap 9 BUN 21 H Creatinine 1.3 Creat Clearance w eGFR 59.17 Random Glucose 181 H D Hemoglobin A1c % Calcium 8.2 L Phosphorus 2.1 L Magnesium 2.5 H Total Bilirubin AST ALT Alkaline Phosphatase Creatine Kinase Creatine Kinase Index CK-MB (CK-2) Troponin I 0.12 H B-Natriuretic Peptide Total Protein Albumin Triglycerides 98 Cholesterol 171 Total LDL Cholesterol 113 H HDL Cholesterol 37 L D Urine Color Ltyellow Urine Appearance Clear Urine pH 6.0 Ur Specific [place] 1.011 Urine Protein 1+ H Urine Glucose (UA) Negative Urine Ketones Negative Urine Blood 1+ H Urine Nitrite Negative Urine Bilirubin Negative Urine Urobilinogen 2.0 Ur Leukocyte Esterase Negative Urine WBC (Auto) <1 Urine RBC (Auto) <1 02/07/18 06:00 WBC RBC Hgb Hct MCV MCH MCHC RDW Plt Count MPV Absolute Neuts (auto) Neutrophils % Lymphocytes % Monocytes % Eosinophils % Basophils % Nucleated RBC % Sodium Potassium Chloride Carbon Dioxide Anion Gap BUN Creatinine Creat Clearance w eGFR Random Glucose Hemoglobin A1c % 7.5 H Calcium Phosphorus Magnesium Total Bilirubin AST ALT Alkaline Phosphatase Creatine Kinase Creatine Kinase Index CK-MB (CK-2) Troponin I B-Natriuretic Peptide Total Protein Albumin Triglycerides Cholesterol Total LDL Cholesterol HDL Cholesterol Urine Color Urine Appearance Urine pH Ur Specific [place] Urine Protein Urine Glucose (UA) Urine Ketones Urine Blood Urine Nitrite Urine Bilirubin Urine Urobilinogen Ur Leukocyte Esterase Urine WBC (Auto) Urine RBC (Auto) HOSPITAL COURSE: Date of Admission:02/06/18 Date of Discharge: 02/07/18 Admitting diagnosis sepsis due to PNA, tropinemia, odette pre hospital course Patient is a 47 year old male with a PMHx of HTN, pre-diabetes who presents today complaining of Sore throat, subjective fevers, chills, malaise, fatigue, dry cough for the last two days. Patient initially presented to the ED yesterday for these symptoms and was given Levaquin and discharged home. Patient however, reports his symptoms were worsening and he started having worsening fevers with worsening malaise and cough. Patient reports no productive sputum with cough. Denies sick contacts or anyone sick in the house. Denies any recent travel. Patient also reports having one episode of sharp, non radiating, intermittent chest pain that lasted only 5 minutes associated with palpitations. He reports never having these symptoms in the past and denies any shortness of breath. Otherwise, patient denies blurry vision, loss of consciousness, abdominal pain, dizziness, vomiting, diarrhea, constipation, rhinorrhea, nasal congestion, throat swelling, difficulty swallowing. Patient reports having an exercise stress test done one year ago and was negative. Subsequent hospital course tele admission. started on levaquin and IVF. troponin trended and stable at 0.12 x2. pt signed out AMA prior to my arrival to see the patient. Minutes to complete discharge: 40 Discharge Summary Reason For Visit: FEVER; PNEUMONIA; HYPOKALEMIA Current Active Problems Elevated troponin (Acute) Hypokalemia (Acute) Pneumonia (Acute) Sepsis (Acute) Condition: Guarded - Instructions - Home Medications Comprehensive Discharge Medication List: Ambulatory Orders Hydrochlorothiazide [Hctz -] 50 mg PO DAILY 02/06/18 Losartan Potassium 100 mg PO DAILY 02/06/18 This patient is new to me today: No Emergency Visit: Yes ED Registration Date: 02/06/18 Care time: The patient presented to the Emergency Department on the above date and was hospitalized for further evaluation of their emergent condition. Critical Care patient: No - Discharge Referral Referred to [facility] Med P.C.: No
--- NOTE | 2018-02-07 19:09 | EKG ---
Test Reason : Blood Pressure : / mmHG Vent. Rate : 083 BPM Atrial Rate : 083 BPM P-R Int : 192 ms QRS Dur : 094 ms QT Int : 376 ms P-R-T Axes : 034 -18 121 degrees QTc Int : 441 ms NORMAL SINUS RHYTHM POSSIBLE LEFT ATRIAL ENLARGEMENT LEFT VENTRICULAR HYPERTROPHY WITH REPOLARIZATION ABNORMALITY ABNORMAL ECG WHEN COMPARED WITH ECG OF 19-JUN-2013 09:25, ST LESS ELEVATED IN ANTERIOR LEADS Confirmed by FRITZ ESTEVEZ MD ([id number]) on 02/07/2018 7:08:52 PM Referred By: Confirmed By:FRITZ ESTEVEZ MD
== END 2018-02-07 11:46 | disposition left against medical advice (07) | DRG 720 ==
LOC: JER 13:01 → JERBED 16:45 → J4W 02-07 05:21
PROVIDERS: ADMIT Internal Medicine; ATTEND Internal Medicine
DX: A41.9 Sepsis, unspecified organism (principal); J18.9 Pneumonia, unspecified organism; E87.6 Hypokalemia; N17.9 Acute kidney failure, unspecified; F17.210 Nicotine dependence, cigarettes, uncomplicated; J02.9 Acute pharyngitis, unspecified; E66.9 Obesity, unspecified; Z68.41 Body mass index [BMI] 40.0-44.9, adult
CPT/HCPCS: 36415; 71046-TC-FY; 80048; 80053; 80061; 81003; 81015; 82550; 82553; 83036; 83721; 83735; 83880; 84100; 84484; 85025; 87040; 93005; 93010; 99285-25; J0131; J1100; J1644; J7030

== ENCOUNTER 2018-02-09 11:12 | Emergency (ER) | payer OTHER ==
[2018-02-09 11:21] VITALS: BMI 40.1
--- NOTE | 2018-02-09 12:07 | PDOC ---
History of Present Illness - General Chief Complaint: Lightheaded Stated Complaint: REVISIT, FOLLOW UP Time Seen by Provider: 02/09/18 11:58 History Source: Patient Exam Limitations: No Limitations - History of Present Illness Initial Comments: 02/09/18 17:29 Mr. Clayton is a 47 yo M with a hx of HTN presenting to the emergency department with elevated blood pressure and headaches. Per the patient, he was seen here recently in the emergency department for PNA. The headaches began last Friday and have been intermittent in the right temporal region without radiation that is described as throbbing. They last up to 30 minutes and occur 5 -6x/day. Came in because it became acutely worse and was not resolving on its own. Denies photophobia and phonophobia. It was 7/10 throbbing in the right temporal this morning and currently 3/10. Normally, his BPs are in the 130s/ 90s. Denies the following: fever, dehydration, head trauma, recent visual changes, FND, nausea, vomiting, chest pain, SOB, abdominal pain, dysuria, hematuria, melena, hematochezia, and leg pain/swellig and diarrhea. Pmhx: HTN Shx: None Meds: losartan and HCTZ Allergies: NKDA Past History - Past Medical History Allergies/Adverse Reactions: Allergies Allergy/AdvReac Type Severity Reaction Status Date / Time No Known Drug Allergies Allergy Unknown Verified 02/09/18 11:17 seafood Allergy Uncoded 02/09/18 11:17 Home Medications: Ambulatory Orders Hydrochlorothiazide [Hctz -] 50 mg PO DAILY 02/06/18 Losartan Potassium 100 mg PO DAILY 02/06/18 COPD: No DVT: No HTN: Yes - Immunization History Immunization Up to Date: Yes - Suicide/Smoking/Psychosocial Hx Smoking History: Current every day smoker Have you smoked in the past 12 months: Yes Number of Cigarettes Smoked Daily: 20 Information on smoking cessation initiated: Yes 'Breaking Loose' booklet given: 02/09/18 Hx Alcohol Use: No Drug/Substance Use Hx: No Substance Use Type: None Hx Substance Use Treatment: No Review of Systems - Review of Systems Able to Perform ROS?: Yes Constitutional: No: Chills, Diaphoresis, Fever HEENTM: No: Recent change in vision, Ear Pain, Nose Pain, Throat Pain, Mouth Pain Respiratory: No: Cough, Shortness of Breath Cardiac (ROS): No: Chest Pain ABD/GI: No: Constipated, Diarrhea, Nausea, Rectal Bleeding, Vomiting, Tarry Stools : No: Burning, Dysuria, Hematuria Musculoskeletal: No: Back Pain Integumentary: No: Lesions, Rash, Sweating Neurological: Yes: Headache. No: Numbness, Paresthesia, Tremors, Weakness, Unsteady Gait Psychiatric: No: Stressors Endocrine: No: Unexplained Weight Gain Hematologic/Lymphatic: No: Anemia *Physical Exam - Vital Signs Last Vital Signs Temp Pulse Resp BP Pulse Ox 98.0 F 70 18 158/114 100 02/09/18 11:18 02/09/18 11:18 02/09/18 11:18 02/09/18 11:18 02/09/18 11:18 - Physical Exam General Appearance: Yes: Nourished, Appropriately Dressed HEENT: positive: EOMI, ONEL, Normal ENT Inspection Neck: negative: Lymphadenopathy (R), Lymphadenopathy (L) Respiratory/Chest: positive: Lungs Clear, Normal Breath Sounds. negative: Chest Tender Cardiovascular: positive: Regular Rhythm, Regular Rate, S1, S2. negative: Systolic Murmur Vascular Pulses: Dorsalis-Pedis (R): 3+, Doralis-Pedis (L): 3+ Gastrointestinal/Abdominal: positive: Normal Bowel Sounds. negative: Tender Lymphatic: negative: Adenopathy Musculoskeletal: positive: Normal Inspection. negative: CVA Tenderness Extremity: positive: Normal Capillary Refill, Normal Inspection, Normal Range of Motion Integumentary: positive: Normal Color, Dry, Warm Neurologic: positive: [employer] II-XII NML intact, Fully Oriented, Alert, Normal Mood/ Affect, Normal Response, Motor Strength 5/5. negative: Facial Droop, Numbness, Sensory Deficit, Confused ED Treatment Course - LABORATORY CBC & Chemistry Diagram: 02/09/18 13:36 02/09/18 13:36 Medical Decision Making - Medical Decision Making 02/09/18 17:36 47 yo M with hx of HTN presenting with elevated BP and chest pain that was recently admitted for PNA/sepsis s/p IV levaquin but left AMA without outpatient antibiotics. ddx: headaches (tension vs migraines vs cluster), PNA, URI, infection, metabolic derangement, dehydration, Initial vitals: Initial Vital Signs Temp Pulse Resp BP Pulse Ox 98.0 F 70 18 158/114 100 02/09/18 11:18 02/09/18 11:18 02/09/18 11:18 02/09/18 11:18 02/09/18 11:18 Work up: Laboratory Tests 02/09/18 02/09/18 13:36 13:36 WBC 6.3 RBC 5.06 Hgb 13.5 Hct 41.1 MCV 81.1 MCH 26.7 MCHC 32.9 RDW 15.7 Plt Count 240 D MPV 8.6 Absolute Neuts (auto) 3.2 Neutrophils % 50.8 D Neutrophils % (Manual) 45.0 Band Neutrophils % 0.0 Lymphocytes % 32.4 D Lymphocytes % (Manual) 39.0 Monocytes % 10.1 Monocytes % (Manual) 9 Eosinophils % 5.3 H D Eosinophils % (Manual) 5.0 H Basophils % 1.4 D Basophils % (Manual) 0.0 Myelocytes % (Man) 0 Promyelocytes % (Man) 0 Blast Cells % (Manual) 0 Nucleated RBC % 0 Metamyelocytes 0 Hypochromia 0 Toxic Granulation 0 Dohle Bodies 0 Platelet Estimate Normal Polychromasia 0 Poikilocytosis 0 Basophilic Stippling 0 Anisocytosis 0 Microcytosis 0 Macrocytosis 0 Spherocytes 0 Sickle Cells 0 Target Cells 0 Tear Drop Cells 0 Ovalocytes 0 Stomatocytes 0 Helmet Cells 0 [place] Bodies 0 [place] Rings 0 [place] Cells 0 Acanthocytes (Spur) 0 Rouleaux 0 Fragmented RBCs 0 Schistocytes 0 Sodium 142 Potassium 3.3 L Chloride 100 Carbon Dioxide 34 H Anion Gap 8 BUN 24 H Creatinine 1.3 Creat Clearance w eGFR 59.17 Random Glucose 99 D Calcium 8.4 L Total Bilirubin 0.4 AST 33 D ALT 58 D Alkaline Phosphatase 49 Total Protein 6.3 L Albumin 3.1 L CXR was within normal limits no acute pathologies noted. potassium was slightly depressed and given 40 mg. Was given ns and acetaminophen. was given 100 mg of losartan and 50 mg of HCTZ for BP control and will be discharged home. Patient' s BP was elevated with reassessment to 189/116, but his symptoms resolved and given his home dose. Understands the plan to follow up with primary care provider for further management. Dispo: Home 02/10/18 10:33 *DC/Admit/Observation/Transfer Diagnosis at time of Disposition: Headache Qualifiers: Headache type: unspecified Headache chronicity pattern: unspecified pattern Intractability: intractable Qualified Code(s): R51 - Headache - Discharge Dispostion Disposition: HOME Decision to Admit order: No - Referrals Referrals: [facility] [place] [Provider Group] - Patient Instructions Printed Discharge Instructions: DI for Headache Additional Instructions: You have been diagnosed with a headache. Be sure to drink plenty of fluids. Please follow up with our clinic for further management. Your care is not complete until this is done. Please return to the emergency department if new concerning symptoms arise or symptoms persist or worsen. - Post Discharge Activity Forms/Work/School Notes: Back to Work
[2018-02-09] MEDS ORDERED: METOCLOPRAMIDE HCL INJECTION 10 MG/2 ML VIAL IVPUSH ONE (13:17)
[2018-02-09] MEDS ORDERED: ACETAMINOPHEN 1000 MG/100 ML VIAL (NON FORMULARY) IVPB ONE (13:17)
--- NOTE | 2018-02-09 13:20 | PDOC ---
Attending Attestation - Resident Resident Name: GenevieveRegulo - ED Attending Attestation I have performed the following: I have examined & evaluated the patient, The case was reviewed & discussed with the resident, I agree w/resident's findings & plan - HPI HPI: 02/09/18 14:32 Forrest 47 year old male, with a significant past medical history of hypertension, who presents to the emergency department with, 4 days of a worsening headache. As per patient, his headache is localized to the right temporal region. His headache initially onset as a 7/10 episodic headache lasting 30 minutes, and alleviated after drinking water with associated elevated blood pressure. He describes his headache now as a 3/10 with elevated blood pressure. His systolic blood pressure normally runs within 130s. The patient was recently admitted and signed out AMA for pneumonia and sepsis, s/p IV Levaquin. Did not get discharged with antibiotics. Current anti hypertensive regimen of hydrochlorothiazide and lorsartan; off amlodipine x 1 year. He denies any recent photophobia or phonophobia. He denies any further fevers, chills, or dizziness. He denies any recent nausea, vomit, diarrhea or constipation. He denies any recent chest pain or shortness of breath. He denies any recent dysuria, frequency, urgency or hematuria. Allergies: Seafood. Past surgical history: None reported. Social History: Smoker (1 pack per day). Denies EtOH use and recreational drug use. no other sick contacts. 02/09/18 14:33 - Physicial Exam PE: 02/09/18 14:33 NAD, well appearing, MMM, nl conjunctiva, anicteric; neck supple. lungs clear, RRR, abdomen soft nontender obese. No peripheral edema. normal color for ethnicity, WWP. Alert, oriented to person time and place. CN II-XII grossly intact. Strength prox and distally 5/5 throughout. Sensation grossly intact to light touch. EVANS x4. No focal neuro deficits. No cerebellar signs, no ataxia. Speech clear. - Medical Decision Making 02/09/18 14:33 47 YOM with h/o HTN presenting with right temporal headache x 4 days; preceded by recent ED eval 4 days ago last week for fever, malaise, cough and chest sx; admitted but left AMA, presumed dx of pneumonia, did not complete treatment. Admits to persistent headache, no further fevers or respiratory sx. Vital signs reviewed, wnl. Mildly elevated BP 150/110s. Medical Plan: CBC, CMP, ECG, CXR Prior notes reviewed, including admissions, discharges and consultations. laboratory results and imaging reviewed, basic labs and lytes wnl. No trop warranted, as no cp or sob. No distress and EKG unchanged from prior. CXR_ no acute findings, no pneumonia EKG normal sinus rhythm, no interval abnormalities, narrow QRS, ST and T wave segments and morphology normal. TWI in V4-6, I, AVL, which are unchanged from prior, +LVH present No further infectious sx, as currently on antibiotics and completing course. No neuro sx to warrant emergent CT scan. Symptomatic management of mild 3/10 headache with tylenol and reglan. Compliance with antihypertensives discussed. given home dose of hctz and losartan for today given he missed his morning dose and remains hypertensive w/o symptoms or neuro changes. clinically doubt emergent pathology such as CLEARANCE DIVER infection or sepsis, as no fevers here. HTN related to BP derangements and elevation, may need titration of meds as well as recent infectious sx. Discharge: Pt informed of my clinical impression, treatment recommendations and disposition plan. All questions answered to patient's satisfaction and expressed understanding and comfort with this. Reasons for returning to the ED sooner discussed with the patient otherwise, follow up with primary care physician. At the time of discharge, the patient is alert, clinically improved, tolerating po and verbalizes understanding of instructions. return precautions discussed. 02/10/18 12:44 Heart Score/ECG Review - ECG Impressions Normal ECG: No Comment:: 02/09/18 13:26 EKG normal sinus rhythm, no interval abnormalities, narrow QRS, ST and T wave segments and morphology normal. TWI in V4-6, I, AVL, which are unchanged from prior, +LVH present
[2018-02-09] MEDS ORDERED: METOCLOPRAMIDE HCL INJECTION 10 MG/2 ML VIAL ONE (13:31)
[2018-02-09] MEDS ORDERED: ACETAMINOPHEN INJECTION 100 ML IVPB ONE (13:31)
[2018-02-09 13:52] LABS: BASO % 1.4 % (0-2.0); EOS % 5.3 % (0-4.5); HEMATOCRIT 41.1 % (35.4-49); HEMOGLOBIN 13.5 GM/dL (11.7-16.9); LYMPH % 32.4 % (8-40); MCH 26.7 pg (25.7-33.7); MCHC 32.9 g/dl (32.0-35.9); MEAN CELL VOLUME 81.1 fl (80-96); MEAN PLT VOLUME 8.6 fl (7.5-11.1); MONO % 10.1 % (3.8-10.2); NEUT % 50.8 % (42.8-82.8); PLATELET COUNT 240 K/MM3 (134-434); RBC 5.06 M/mm3 (4.00-5.60); RDW 15.7 % (11.9-15.9); WHITE BLOOD COUNT 6.3 K/mm3 (4.0-10.0)
[2018-02-09 14:20] LABS: ALBUMIN 3.1 g/dl (3.4-5.0); ANION GAP 8 MMOL/L (8-16); BILIRUBIN,TOTAL 0.4 mg/dL (0.2-1.0); BLOOD UREA NITROGEN 24 mg/dL (7-18); CALCIUM 8.4 mg/dL (8.5-10.1); CHLORIDE 100 mmol/L (98-107); CO2 34 mmol/L (21-32); CREATININE 1.3 mg/dL (0.7-1.3); GLUCOSE,RANDOM 99 mg/dL (74-106); POTASSIUM 3.3 mmol/L (3.5-5.1); SGOT/AST 33 U/L (15-37); SGPT/ALT 58 U/L (12-78); SODIUM 142 mmol/L (136-145); TOT PROT 6.3 g/dl (6.4-8.2)
[2018-02-09 14:21] LABS: ALK PHOS 49 U/L (45-117)
[2018-02-09 15:15] LABS: ACANTHOCYTES 0; ANISOCYTOSIS 0; HELMET CELLS 0; HOWELL-JOLLY BODIES 0; MACROCYTOSIS 0; OVALOCYTE 0; PLATELET ESTIMATE NORMAL; ROULEAU 0; SICKELED CELLS 0; TARGET CELLS 0; TEAR DROP CELLS 0; TOXIC GRANULATION 0
[2018-02-09] MEDS ORDERED: POTASSIUM CHLORIDE TABS 20 MEQ TABLET.ER (FP) PO ONE ×2 (16:36→16:45)
--- NOTE | 2018-02-09 16:43 | EKG ---
Test Reason : Blood Pressure : / mmHG Vent. Rate : 066 BPM Atrial Rate : 066 BPM P-R Int : 168 ms QRS Dur : 102 ms QT Int : 422 ms P-R-T Axes : 026 -10 119 degrees QTc Int : 442 ms NORMAL SINUS RHYTHM LEFT VENTRICULAR HYPERTROPHY WITH REPOLARIZATION ABNORMALITY ABNORMAL ECG WHEN COMPARED WITH ECG OF 06-FEB-2018 14:43, NO SIGNIFICANT CHANGE WAS FOUND Confirmed by TAMIKO GORDON MD ([id number]) on 02/09/2018 4:42:58 PM Referred By: Confirmed By:TAMIKO GORDON MD
[2018-02-09 16:44] VITALS: BP 189/116; PULSE 73; TEMP 97.9
[2018-02-09] MEDS ORDERED: HYDROCHLOROTHIAZIDE 50 MG TABLET PO ONE (17:13)
[2018-02-09] MEDS ORDERED: LOSARTAN POTASSIUM 50 MG TABLET (FP) PO ONE (17:13)
[2018-02-09] MEDS ORDERED: LOSARTAN POTASSIUM 25 MG TABLET ONE (17:50)
[2018-02-09] MEDS ORDERED: HYDROCHLOROTHIAZIDE 25 MG TABLET (FP) ONE (17:50)
== END 2018-02-09 17:55 | disposition home or self-care (01) ==
LOC: JER 11:12
PROC: 3E033NZ Introduction of Analgesics, Hypnotics, Sedatives into Peripheral Vein, Percutaneous Approach (ICD-10-PCS; principal; 2018-02-09)
PROC: 3E033GC Introduction of Other Therapeutic Substance into Peripheral Vein, Percutaneous Approach (ICD-10-PCS; 2018-02-09)
DX: I10 Essential (primary) hypertension (principal); R51 Headache; F17.210 Nicotine dependence, cigarettes, uncomplicated; Z91.013 Allergy to seafood
CPT/HCPCS: 36415; 71046-TC-FY; 80053; 85025; 93005; 93010; 96374; 96375; 99282-25; J0131